=== PATIENT | female | born 1985 | race African-American/Black ===

== ENCOUNTER 2021-11-09 15:05 | Emergency (ER) | payer SELFPAY ==
[~2021-11-09] VITALS: Ht 157.5 cm; Wt 87.7 kg
[2021-11-09 16:07] VITALS: BP 119/72
[2021-11-09 16:16] LABS: COVID AG,FIA SOURCE NASAL SWAB
== END 2021-11-09 19:18 | disposition home or self-care (01) ==
LOC: EMS 15:05
DX: U07.1 COVID-19 (principal)
CPT/HCPCS: 99283